=== PATIENT | male | born 1955 | race Hispanic/Latino ===

== ENCOUNTER 2021-11-21 11:15 | Emergency (ER) | payer OTHER ==
[~2021-11-21] VITALS: Ht 175.3 cm; Wt 89.8 kg
== END 2021-11-21 11:39 | disposition home or self-care (01) ==
LOC: ER 11:20
DX: K04.7 Periapical abscess without sinus (principal); K02.9 Dental caries, unspecified; I12.0 Hypertensive chronic kidney disease with stage 5 chronic kidney disease or end stage renal disease; E11.22 Type 2 diabetes mellitus with diabetic chronic kidney disease; N18.6 End stage renal disease; E78.5 Hyperlipidemia, unspecified
CPT/HCPCS: 99282